=== PATIENT | female | born 2005 | race Caucasian/White ===

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

== ENCOUNTER 2024-07-26 13:30 | Emergency (ER) | payer OTHER ==
[~2024-07-26] VITALS: Ht 162.6 cm; Wt 82.5 kg
[2024-07-26 13:39] VITALS: BP 147/83
[2024-07-26] MEDS ORDERED: Lidocaine/Tetracaine/Epinephr 3 ML GEL SYRINGE TOP ONE (14:00)
[2024-07-26] MEDS ORDERED: Diphth,Pertuss(Acell),Tet Vac 0.5 ML VIAL IM ONE (14:00)
[2024-07-26] MEDS ORDERED: AMOX-CLAV 875-1 EAC2 PO (14:10)
== END 2024-07-26 15:26 | disposition home or self-care (01) ==
LOC: ER 13:30
DX: S81.851A Open bite, right lower leg, initial encounter (principal); W54.0XXA Bitten by dog, initial encounter
CPT/HCPCS: 90471; 90715; 99283-25

== ENCOUNTER 2025-07-24 10:42 | Emergency (ER) | payer OTHER ==
[~2025-07-24] VITALS: Ht 162.6 cm; Wt 82.5 kg
[~2025-07-24 10:42] MED LIST: AMOX-CLAV 875-1 EAC2 PO
[2025-07-24] MEDS ORDERED: Naprosyn500 MG PO (11:28)
[2025-07-24 11:58] VITALS: BP 148/70
== END 2025-07-24 12:01 | disposition home or self-care (01) ==
LOC: ER 10:42
DX: M25.831 Other specified joint disorders, right wrist (principal)
CPT/HCPCS: 99283